=== PATIENT | male | born 1960 | race Caucasian/White ===

== ENCOUNTER 2023-11-11 11:48 | Emergency (ER) | payer OTHER ==
[2023-11-11] MEDS ORDERED: Lidocaine 2% 20 ML MDV INFILT ONE (11:49)
[2023-11-11] MEDS ORDERED: Lidocaine/Epineph/Tetracaine 3 ML Syringe TOP ONE (12:05)
== END 2023-11-11 13:50 | disposition home or self-care (01) ==
LOC: FB.ED 11:48
DX: S61.211A Laceration without foreign body of left index finger without damage to nail, initial encounter (principal); W23.0XXA Caught, crushed, jammed, or pinched between moving objects, initial encounter
CPT/HCPCS: 12002; 73130; 99283; A9270